=== PATIENT | male | born 2000 | race Caucasian/White ===

== ENCOUNTER 2021-09-29 02:22 | Emergency (ER) | payer OTHER ==
[~2021-09-29] VITALS: Ht 188 cm; Wt 95.3 kg
[2021-09-29 02:34] VITALS: BP 145/51
--- NOTE | 2021-09-29 02:34 | NUR ---
TO BED AMBULATORY
--- NOTE | 2021-09-29 03:00 | NUR ---
20 Y/O M BIB SELF FOR DIZZINESS. PT STARTED DRINKING BEERS AND HARD LIQOUR EARLIER . PT DENIES VOMITING/ DIARRHEA. DIZZINESS STARTED AROUND 2100. PT FELT WEAK AND NAUSEATED. PT DID NOT TAKE ANY MEDS FOR DIZZINESS. SKIN IS PINK/WARM/DRY; AAOX4 WITH EVEN AND STEADY GAIT; LUNGS CLEAR BL; HR EVEN AND REGULAR; PT DENIES ANY FEVER, CP, SOB, OR COUGH AT THIS TIME; PATIENT STATES PAIN OF 0/10 AT THIS TIME; VSS; PATIENT POSITIONED FOR COMFORT; HOB ELEVATED; BEDRAILS UP X2; BED DOWN. ER MD MADE AWARE OF PT STATUS.
--- NOTE | 2021-09-29 04:05 | NUR ---
Patient appears to be sitting comfortably in bed. Vital Signs within normal limits. Respirations even and unlabored.
[2021-09-29 04:15] VITALS: BP 136/65
--- NOTE | 2021-09-29 04:15 | NUR ---
Patient discharged with v/s stable. Written and verbal after care instructions given and explained. Patient verbalized understanding. Ambulatory with steady gait. All questions addressed prior to discharge. Advised to follow up with PMD.
--- NOTE | 2021-09-29 04:40 | NUR ---
The patient's care was reviewed and supervised by Marjorie Thakur RN.
== END 2021-09-29 04:15 | disposition home or self-care (01) ==
LOC: MED 02:22
DX: R42 Dizziness and giddiness (principal); Z88.0 Allergy status to penicillin
CPT/HCPCS: 93005; 99283